=== PATIENT | female | born 1960 | race Caucasian/White ===

== ENCOUNTER 2018-07-20 04:47 | Day surgery (SDC) | payer BC, OTHER ==
[2018-07-19 11:10] VITALS: BMI 35.9
[2018-07-20] MEDS ORDERED: PROPOFOL 20 ML ONE (13:41)
[2018-07-20] MEDS ORDERED: MIDAZOLAM HCL 2 MG/2 ML SINGLE DOSE VIAL ONE ×2 (13:41)
[2018-07-20] MEDS ORDERED: SUCCINYLCHOLINE CHLORIDE 200 MG/10 ML VIAL ONE (13:42)
[2018-07-20] MEDS ORDERED: DEXAMETHASONE SOD PHOSPHATE 4 MG/1 ML VIAL ONE (14:06)
[2018-07-20] MEDS ORDERED: KETOROLAC TROMETHAMINE 30 MG/1 ML VIAL ONE (14:06)
[2018-07-20] MEDS ORDERED: LIDOCAINE HCL/PF 2% SDV 5ML VIAL ONE (14:06)
[2018-07-20] MEDS ORDERED: ONDANSETRON 4 MG/2 ML VIAL IVPUSH PRN ×2 (14:25→14:41)
[2018-07-20] MEDS ORDERED: PROMETHAZINE HCL 25 MG/1 ML VIAL IVPB PRN (14:25)
[2018-07-20] MEDS ORDERED: oxyCODONE HCL 5 MG TABLET PO PRN ×2 (14:25→14:41)
--- NOTE | 2018-07-20 14:40 | HP ---
History & Physical Update - Physical Physical: No Change - Assessment Assessment: No Change - Plan Plan: No Change (PMB, fibroid uterus for hysteroscopy, D&C , polypectomy, possible submucos myomectomy)
[2018-07-20] MEDS ORDERED: IBUPROFEN 800 MG/8 ML IJ IVPB PRN (14:41)
[2018-07-20] MEDS ORDERED: IBUPROFEN 600 MG TABLET (FP) PO PRN (14:41)
[2018-07-20] MEDS ORDERED: ELECTROLYTE-148 SOLN 1,000 ML IV SCH (14:45)
[2018-07-20 16:27] VITALS: BP 138/69; PULSE 88; TEMP 97.9
--- NOTE | 2018-07-24 13:32 | PATH ---
Surgical Pathology Report Patient Name: [facility]. Rec. #: [id number] /Age/Gender: 1960 (Age: 57) / F Account: [id number] Location: [facility] SURGICAL Taken: 07/20/2018 Received: 07/21/2018 Reported: 07/24/2018 Physicians: Jasvir Delacruz M.D. Specimen(s) Received A: FIBROID B: ENDOMETRIAL CURETTINGS Clinical History Postmenopausal bleeding Final Diagnosis A. FIBROID, DILATION AND CURETTAGE: 1 G FRAGMENT OF SMOOTH MUSCLE CONSISTENT WITH SUBMUCOSAL LEIOMYOMA. PROLIFERATIVE ENDOMETRIUM. B. ENDOMETRIAL CURETTINGS, DILATION AND CURETTAGE: FRAGMENT OF SMOOTH MUSCLE CONSISTENT WITH SUBMUCOSAL LEIOMYOMA. POLYPOID PROLIFERATIVE ENDOMETRIUM. SCANT BENIGN CERVICAL TISSUE. Electronically Signed Clover Mack M.D. Gross Description A. Received in formalin labeled "fibroid," is a less than 1 g aggregate of 2 pearl, irregular portion of firm tissue measuring 0.7 and 1.2 cm in greatest dimension, possibly consistent with portions of fibroid. The specimens are submitted in toto in one cassette. B. Received in formalin labeled "endometrial curetting" is a 2.5 x 2.4 x 0.3 cm aggregate of pearl-brown soft tissue fragments admixed with blood clot. The formalin is filtered and the specimen is entirely submitted in one cassette. /07/21/2018 saudi07/21/2018
--- NOTE | 2018-07-28 08:36 | OP ---
DATE OF OPERATION: 07/20/2018 PREOPERATIVE DIAGNOSIS: Menometrorrhagia, fibroid uterus, submucous myoma. POSTOPERATIVE DIAGNOSIS: Menometrorrhagia, fibroid uterus, submucous myoma. PROCEDURE PERFORMED: Hysteroscopy, dilatation and curettage, polypectomy and resection of submucous myoma. SURGEON: Jasvir Delacruz MD ANESTHESIA: General. ESTIMATED BLOOD LOSS: 50 mL. DESCRIPTION OF PROCEDURE: The patient was taken to the operating room and had adequate general anesthesia. The abdomen, perineum and vagina were prepped and draped. Examination under anesthesia revealed the external genitalia to be normal. The vagina was normal. Cervix was clean, no gross lesion. Uterus was irregular and slightly enlarged. Adnexa no masses were palpable. Then, with a weighted speculum in the vagina, the anterior lip of the cervix was grasped with a single-tooth tenaculum. The cervix was dilated with Hegar dilators slightly. Then the Symphion resectoscope/hysteroscope was introduced and visualization of endocervical canal appeared to be normal. The endometrium was slightly irregular. There was a small submucous myoma at the posterior uterine wall, and there was another one in the anterior wall, mid body of the uterus. Submucous fibroids were identified. Then, with the resectoscope, was resected in its entirety. No active bleeding was seen at the site of procedure. Then hysteroscope was withdrawn. Then endometrium was curetted and suctioned. The patient tolerated the procedure well, and left the OR in good condition. Leslie [id number]
== END 2018-07-20 16:30 | disposition home or self-care (01) ==
LOC: JASU-SURG 04:47
PROVIDERS: ATTEND Obstetrics & Gynecology
PROC: 0UJD8ZZ Inspection of Uterus and Cervix, Via Natural or Artificial Opening Endoscopic (ICD-10-PCS; 2018-07-20)
PROC: 0UB98ZZ Excision of Uterus, Via Natural or Artificial Opening Endoscopic (ICD-10-PCS; principal; 2018-07-20 14:30)
PROC: 0UDB7ZX Extraction of Endometrium, Via Natural or Artificial Opening, Diagnostic (ICD-10-PCS; 2018-07-20 14:30)
DX: N92.1 Excessive and frequent menstruation with irregular cycle (principal); D25.0 Submucous leiomyoma of uterus
CPT/HCPCS: 88305-TC; 94760